=== PATIENT | male | born 1945 | race African-American/Black ===

== ENCOUNTER → 2019-02-20 | Outpatient (CLI) | payer MEDICARE, OTHER ==
--- NOTE | 2019-02-20 11:26 | KCIC ---
MRI Brain without contrast History:Dizziness, blurred vision, unsteady gait, numbness of the right leg since November Technique: Multiplanar, multisequential noncontrast MR imaging was performed of the brain. Comparison: None Findings: There is no evidence of recent infarct or cytotoxic edema. Ventricular size is within normal limits. There is mild generalized supratentorial atrophy.There is no significant midline shift, intraaxial mass effect, or focal abnormal extra-axial fluid collection. There is minimal scattered T2 and FLAIR hyperintense signal abnormality of the supratentorial parenchyma bilaterally greatest of the frontal parietal deep white matter. There is no significant hemosiderin deposition of the brain parenchyma. There is focus of nonspecific extra-axial calcification in the left frontal region not associated with significant noncalcified soft tissue mass. There is preservation of the major intracranial flow-voids at the skull base. The mastoid air cells are aerated. The cerebellar tonsils are normal in location. There is no significant abnormality of the pineal gland or pituitary gland. There is mild bilateral ethmoid air cell and right greater than frontal sinus mucosal thickening. There is very mild bilateral maxillary sinus mucosal thickening, mucous retention cyst posteriorly on the right about 0.9 cm. There is preserved marrow signal of the clivus. There is nonspecific fluid associated with the occipital condylar-C1 articulations bilaterally greater on the right. Impression: 1. There is no evidence of recent infarct or intracranial mass effect. Scattered mild T2 and FLAIR hyperintense signal abnormality of the supratentorial parenchyma bilaterally is more prominent due to chronic microvascular ischemic disease in a patient this age. There is mild generalized supratentorial atrophy. Electronically signed by: Bird Grayson MD (02/20/2019 11:23 AM) [id number]
== END | disposition home or self-care (01) ==
LOC: KCIC MRI 09:19
PROVIDERS: ATTEND Psychiatry & Neurology Neurology with Special Qualifications in Child Neurology
DX: G31.89 Other specified degenerative diseases of nervous system (principal); J34.1 Cyst and mucocele of nose and nasal sinus
CPT/HCPCS: 70551